=== PATIENT | female | born 1960 | race Two or more races ===

== ENCOUNTER → 2024-05-20 | Outpatient (CLI) | payer MEDICAID, SELFPAY ==
--- NOTE | 2024-05-20 | XR_ITS ---
Examination: Diagnostic digital mammography, unilateral, right Computer aided detection 3-D breast Tomosynthesis, unilateral Date and time of exam: May 21, 2024 at 1001 hours INDICATIONS: Mammogram December 22, 2023 16 mm focal asymmetry 12:00 position right breast, grouped microcalcifications retroareolar region right breast Technique: Nonmagnified MLO, CC views of the right breast have been obtained, reconstructed from 3-D Tomosynthesis images. R2 computer aided detection program utilized for evaluation of suspicious masses and/or abnormal calcifications. 3-D Tomosynthesis images obtained. Findings: Scattered areas of fibroglandular density 12:00 nodule 8 mm with calcifications, probably benign Probably benign calcifications retroareolar region right breast Impression: BI-RADS category 3: Probably benign findings Recommend 1 additional right mammogram 6 month follow-up
--- NOTE | 2024-05-20 09:00 | XR_ITS ---
Examination: Breast ultrasound, unilateral, right complete Date and time of exam: May 20, 2024 0934 hours INDICATIONS: Mammogram December 22, 2023 16 mm focal asymmetry 12:00 position right breast, grouped microcalcifications retroareolar region right breast Technique: Real-time zuñiga scale ultrasonographic imaging performed right breast including all 4 quadrants as well as nipple retroareolar and axillary region. Findings: 12:00 oval mass lobular margins 4 x 4 millimeter 11:00 oval mass with calcifications, circumscribed 8 x 6 mm IMPRESSION: BI-RADS Category 3: Probably benign findings One additional 6 month right breast sonogram follow-up is needed to document stability of nodules described above
== END | disposition home or self-care (01) ==
LOC: CDIM 09:15
PROVIDERS: PCP Nurse Practitioner Family; Referring Provider Nurse Practitioner Family; Visit Provider Nurse Practitioner Family
DX: R92.8 Other abnormal and inconclusive findings on diagnostic imaging of breast (principal); R92.331 Mammographic heterogeneous density, right breast; N63.15 Unspecified lump in the right breast, overlapping quadrants; N63.11 Unspecified lump in the right breast, upper outer quadrant
CPT/HCPCS: 76641; 77061; 77065; G0279